=== PATIENT | male | born 1945 | race Caucasian/White ===

== ENCOUNTER → 2022-11-12 | Outpatient (CLI) | payer MEDICARE, OTHER, SELFPAY ==
--- NOTE | 2022-11-12 12:48 | ECHOD_ITS ---
Reason For Study: Sleep Apnea Procedure This was a 2D Doppler, Color Flow transthoracic echocardiogram. Exam performed in department. Left Ventricle Normal LV size. Left ventricular systolic function is normal. The estimated ejection fraction is 60 %. Normal diastology for age. No regional wall motion abnormalities noted. Right Ventricle Normal RV size. Normal systolic function. Atria The left and right atria are normal. Mitral Valve The mitral valve is structurally normal. No prolapse or stenosis seen. Mild mitral annular calcification. Trivial mitral valve insufficiency. Tricuspid Valve Normal tricuspid valve. Trivial tricuspid valve insufficiency. Unable to estimate RV systolic pressure due to insufficient tricuspid regurgitant envelope. Aortic Valve Trisinus/trileaflet aortic valve. Mild focal aortic valve calcification. There is no aortic stenosis. Pulmonic Valve Normal pulmonic valve. Trivial pulmonic valve insufficiency. Great Vessels Mild atherosclerosis of the ascending aorta. Normal sized aortic root. Pericardium/Pleural No pericardial effusion. MMode/2D Measurements & Calculations LVIDd: 4.7 cm IVSd: 1.0 cm Ao root diam: 3.4 cm LVIDs: 3.1 cm LVPWd: 0.89 cm LA dimension: 4.2 cm RVDd: 3.7 cm FS: 34.9 % LAV(MOD-bp): 71.2 ml LVAd ap4: 34.2 cm2 SV(MOD-sp4): 65.7 ml LAV(MOD-bp) Indexed: 33.5 ml/m2 LVLd ap4: 8.6 cm LAV(MOD-sp2): 73.5 ml EDV(MOD-sp4): 109.5 ml LAV(MOD-sp4): 66.0 ml EDV(sp4-el): 116.1 ml LVAs ap4: 19.1 cm2 LVLs ap4: 7.2 cm ESV(MOD-sp4): 43.8 ml ESV(sp4-el): 43.2 ml EF(MOD-sp4): 60.0 % EF(sp4-el): 62.8 % SV(sp4-el): 72.8 ml LA A4 area: 22.2 cm2 RA A4 area: 19.5 cm2 TAPSE: 2.6 cm Time Measurements MV dec time: 0.22 sec Doppler Measurements & Calculations MV E max charlie: 87.0 cm/sec Lat Peak E' Charlie: 12.5 cm/sec Med Peak E' Charlie: 9.6 cm/sec MV A max charlie: 106.7 cm/sec E/E' lat: 7.0 E/E' med: 9.1 MV E/A: 0.82 MV V2 max: 120.4 cm/sec MV P1/2t max charlie: 99.0 cm/sec Ao V2 max: 134.4 cm/sec MV max P.8 mmHg MV P1/2t: 74.7 msec Ao max P.2 mmHg MV V2 mean: 63.2 cm/sec MV dec slope: 387.9 cm/sec2 Ao V2 mean: 85.0 cm/sec MV mean P.9 mmHg Ao mean P.4 mmHg MV V2 VTI: 33.6 cm MVA(P1/2t): 2.9 cm2 Ao V2 VTI: 30.1 cm AV (velocity ratio): 0.78 LV V1 max: 111.5 cm/sec PA V2 max: 112.2 cm/sec LV V1 max P.0 mmHg PA V2 mean: 72.3 cm/sec LV V1 mean P.4 mmHg LV V1 mean: 70.6 cm/sec LV V1 VTI: 23.6 cm ECHO/Echo Complete Interpretation Summary The estimated ejection fraction is 60 %. Normal diastology for age. Mild mitral annular calcification. Mild focal aortic valve calcification. Ordering Physician: Jesus Crowe V Referring Physician: Trent Gonzalez M.D. Performed By: Thomas Johnson RCS
== END | disposition home or self-care (01) ==
LOC: CVS 12:48
PROVIDERS: PCP Internal Medicine; Referring Provider Internal Medicine Pulmonary Disease; Visit Provider Internal Medicine Pulmonary Disease
DX: G47.33 Obstructive sleep apnea (adult) (pediatric) (principal)
CPT/HCPCS: 93306